=== PATIENT | female | born 1960 | race African-American/Black ===

== ENCOUNTER → 2018-01-11 | Outpatient (CLI) | payer OTHER ==
--- NOTE | 2018-01-11 15:19 | MM ---
Reason for exam: clinical finding. Last mammogram was performed 1 year and 9 months ago. History: Patient is postmenopausal. Family history of breast cancer in sister at age 51 and breast cancer in sister at age 40. Indicated problem(s): lump or thickening in the right breast. Physical Findings: Nurse did not find any significant physical abnormalities on exam. MG Diagnostic Mammo w CAD [facility]NO[facility] Bilateral CC, MLO, and XCCL view(s) were taken. Prior study comparison: April 19, 2016, bilateral MG screening mammo w CAD. July 20, 2015, mammogram, performed at [facility]. The breast tissue is heterogeneously dense. This may lower the sensitivity of mammography. Right superior rounded skin lesion on MLO view, noted in the area of skin lesion per nursing. No suspicious abnormality. Intra-mammary node on the right breast. These results were verbally communicated with the patient and result sheet given to the patient on 01/11/18. ASSESSMENT: Benign, BI-RAD 2 RECOMMENDATION: Routine screening mammogram of both breasts in 1 year.
--- NOTE | 2018-01-11 15:20 | USB ---
Reason for exam: clinical finding. History: Patient is postmenopausal. Family history of breast cancer in sister at age 51 and breast cancer in sister at age 40. Indicated problem(s): lump or thickening in the right breast. US Breast RT Right breast ultrasound includes all four quadrants, the retroareolar region and axilla. Finding demonstrates no cystic or solid lesion seen. No sonographic correlate for the palpable. These results were verbally communicated with the patient and result sheet given to the patient on 01/11/18. ASSESSMENT: Negative, BI-RAD 1 RECOMMENDATION: Routine screening mammogram of both breasts in 1 year. Manage patient on a clinical basis.
== END | disposition home or self-care (01) ==
LOC: RADMAMWWP 13:17
PROVIDERS: ATTEND Family Medicine Adolescent Medicine
DX: N63.10 Unspecified lump in the right breast, unspecified quadrant (principal)
CPT/HCPCS: 77066

== ENCOUNTER → 2018-08-29 | Outpatient (CLI) | payer OTHER ==
--- NOTE | 2018-08-29 07:51 | US ---
EXAMINATION TYPE: US venous doppler duplex LE LT DATE OF EXAM: 08/29/2018 7:21 AM COMPARISON: NONE CLINICAL HISTORY: M79.605 Pain in left leg. Calf tightness. Patient states left thigh is bigger than right. No hx of blood clots. No blood thinners. No surgeries. SIDE PERFORMED: Left TECHNIQUE: The lower extremity deep venous system is examined utilizing real time linear array sonog rober with graded compression, doppler sonography and color-flow sonography. VESSELS IMAGED: External Iliac Vein (EIV) Common Femoral Vein Deep Femoral Vein Greater Saphenous Vein * Femoral Vein Popliteal Vein Small Saphenous Vein * Proximal Calf Veins (* superficial vessels) Left Leg: Negative for DVT Grayscale, color doppler, spectral doppler imaging performed of the deep veins of the left lower extr emity. There is normal flow, compressibility, vascular waveforms. IMPRESSION: No ultrasound evidence for acute DVT in the left lower extremity.
== END | disposition home or self-care (01) ==
LOC: RADUSWWP 06:57
PROVIDERS: ATTEND Family Medicine
DX: M79.605 Pain in left leg (principal)

== ENCOUNTER 2019-05-10 23:43 | Emergency (ER) | payer OTHER ==
[2019-05-10 23:52] VITALS: BP 133/83; RESP 18
[2019-05-11 00:33] LABS: Basophils # (A) 0.1 k/uL (0-0.2); Basophils % (A) 1 %; Eosinophils # (A) 0.4 k/uL (0-0.7); Eosinophils % (A) 4 %; Lymphocytes # (A) 2.6 k/uL (1.0-4.8); Lymphocytes % (A) 25 %; MCH 27.6 pg (25.0-35.0); MCHC 31.7 g/dL (31.0-37.0); MCV 87.1 fL (80.0-100.0); Mean Platelet Volume 7.6; Monocytes # (A) 0.6 k/uL (0-1.0); Monocytes % (A) 6 %; Neutrophils # (A) 6.5 k/uL (1.3-7.7); Neutrophils % (A) 63 %; Platelet Count 277 k/uL (150-450); RBC 4.71 m/uL (3.80-5.40); RDW 15.5 % (11.5-15.5); WBC 10.4 k/uL (3.8-10.6)
[2019-05-11 00:44] LABS: ALT 32 U/L (9-52); AST 25 U/L (14-36); African American GFR (CKD) >90 (>60 ml/min/1.73 sqM); Alkaline Phosphatase 117 U/L (38-126); Anion Gap 5 mmol/L; Blood Urea Nitrogen 16 mg/dL (7-17); Calcium 9.5 mg/dL (8.4-10.2); Carbon Dioxide 33 mmol/L (22-30); Chloride 104 mmol/L (98-107); Glucose 112 mg/dL (74-99); Potassium 4.8 mmol/L (3.5-5.1); Sodium 142 mmol/L (137-145); Total Bilirubin 0.6 mg/dL (0.2-1.3); Total Protein 7.3 g/dL (6.3-8.2)
--- NOTE | 2019-05-11 00:54 | US ---
EXAM: US Duplex Right Lower Extremity Veins CLINICAL HISTORY: ITS.REASON US Reason: Pain TECHNIQUE: Real-time duplex ultrasound scan of the right lower extremity veins integrating B-mode two-dimensional vascular structure, Doppler spectral analysis, color flow Doppler imaging and compression. COMPARISON: None. FINDINGS: Deep veins: Unremarkable. No DVT in the visualized common femoral, femoral, proximal deep femoral or popliteal veins. The veins demonstrate normal color flow, are normally compressible, with normal phasic flow and/or augmentation response. Superficial veins: Unremarkable. No thrombus in the visualized great saphenous vein. Soft tissues: No acute findings. No popliteal cyst. IMPRESSION: No evidence of deep vein thrombosis in the right lower extremity.
--- NOTE | 2019-05-11 00:55 | XR ---
EXAM: XR Chest, 2 Views CLINICAL HISTORY: ITS.REASON XR Reason: Pain TECHNIQUE: Frontal and lateral views of the chest. COMPARISON: None. FINDINGS: Lungs: Hypoinflated lungs with bibasilar opacities which may represent atelectasis. Pleural space: Unremarkable. No pneumothorax. Heart: Cardiomegaly. Mediastinum: Unremarkable. Bones/joints: Degenerative changes seen in the thoracic spine. IMPRESSION: 1. Hypoinflated lungs with bibasilar opacities which may represent atelectasis. Infection is not excluded. 2. Cardiomegaly.
--- NOTE | 2019-05-11 01:22 | ED ---
General Adult HPI - General Chief complaint: Extremity Problem,Nontraumatic Stated complaint: Rt lower leg swelling Time Seen by Provider: 05/10/19 23:56 Source: patient, RN notes reviewed, old records reviewed Mode of arrival: ambulatory Limitations: no limitations - History of Present Illness Initial comments: 59-year-old female patient past history significant for morbid obesity, chronic lower extremity edema presents to do chief complaint of 2 weeks of right lower extremity pain. Patient ports that she has been wearing her compression stockings. Patient denies any chest pain shortness breath abdominal pain nausea vomiting diarrhea. Systemic: Pt denies fatigue, fever/chills, rash. Pt denies weakness, night sweats, weight loss. Neuro: Pt denies headache, visual disturbances, syncope or pre-syncope. HEENT: Pt denies ocular discharge or irritation, otalgia, rhinorrhea, pharyngitis or notable lymphadenopathy. Cardiopulmonary: Pt denies chest pain, SOB, heart palpitations, dyspnea on exertion. Abdominal/GI: Pt denies abdominal pain, n/v/d. : Pt denies dysuria, burning w/ urination, frequency/urgency. Denies new onset urinary or bowel incontinence. MSK: Pt denies loss of strength or function in extremities. Neuro: Pt denies new onset weakness, paresthesias. - Related Data Allergies Allergy/AdvReac Type Severity Reaction Status Date / Time Penicillins Allergy Rash/Hives Verified 05/10/19 23:52 Review of Systems ROS Statement: Those systems with pertinent positive or pertinent negative responses have been documented in the HPI. ROS Other: All systems not noted in ROS Statement are negative. Past Medical History Additional Past Medical History / Comment(s): Chronic edema History of Any Multi-Drug Resistant Organisms: None Reported Past Surgical History: No Surgical Hx Reported Past Psychological History: No Psychological Hx Reported Smoking Status: Former smoker Past Alcohol Use History: None Reported Past Drug Use History: None Reported General Exam - General Exam Comments Initial Comments: Constitutional: NAD, AOX3, Pt has pleasant affect. HEENT: NC/AT, trachea midline, neck supple, no lymphadenopathy. Posterior pharynx non erythematous, without exudates. External ears appear normal, without discharge. Mucous membranes moist. Eyes PERRLA, EOM intact. There is no scleral icterus. No pallor noted. Cardiopulmonary: RRR, no murmurs, rubs or gallops, no JVD noted. Lungs CTAB in anterior and posterior carmona. +2 peripheral edema bilaterally. Abdominal exam: Abdomen soft and non-distended. Abdomen non-tender to palpation in all 4 quadrants. Bowel sounds active in LLQ. No hepatosplenomegaly. No ecchymosis Neuro: CN II-XII grossly intact. No nuchal rigidity. No raccon eyes, no hanson sign, no hemotympanum. No cervical spinal tenderness. MSK: R posterior calf tenderness, homans sign negative bilaterally. Posterior tibialis and radial pulse +2 bilaterally. Sensation intact in upper and lower extremities. Full active ROM in upper and lower extremities, 5/5 stregnth. Limitations: no limitations Course Vital Signs 05/10/19 23:48 Temperature 98 F Pulse Rate 61 Respiratory 18 Rate Blood Pressure 133/83 O2 Sat by Pulse 98 Oximetry Medical Decision Making - Medical Decision Making 59-year-old female patient past history significant for morbid obesity, chronic lower extremity edema presents to do chief complaint of 2 weeks of right lower extremity pain. Patient ports that she has been wearing her compression stockings. Patient denies any chest pain shortness breath abdominal pain nausea vomiting diarrhea. Pt VSS, afebrile. Physical exam displayed: +2 peripheral edema bilaterally. Laboratory investigations noncompressive. Posterior tibialis, dorsalis pedis pulse +2 upper extremity bilaterally. Chest x-ray dis played hypoinflated lungs with bibasilar opacities likely atelectasis. Cardiomegaly. Ultrasound displayed no evidence of DVT. Patient family be secondary to edema. Patient will discharge, follow up with primary Right appeared advised to continue to wear compression stockings. Case discussed with Dr. Gaming. - Lab Data Result diagrams: 05/11/19 00:27 05/11/19 00:27 Lab Results 05/11/19 05/11/19 Range/Units 00:27 00:27 WBC 10.4 (3.8-10.6) k/uL RBC 4.71 (3.80-5.40) m/uL Hgb 13.0 (11.4-16.0) gm/dL Hct 41.0 (34.0-46.0) % MCV 87.1 (80.0-100.0) fL MCH 27.6 (25.0-35.0) pg MCHC 31.7 (31.0-37.0) g/dL RDW 15.5 (11.5-15.5) % Plt Count 277 (150-450) k/uL Neutrophils % 63 % Lymphocytes % 25 % Monocytes % 6 % Eosinophils % 4 % Basophils % 1 % Neutrophils # 6.5 (1.3-7.7) k/uL Lymphocytes # 2.6 (1.0-4.8) k/uL Monocytes # 0.6 (0-1.0) k/uL Eosinophils # 0.4 (0-0.7) k/uL Basophils # 0.1 (0-0.2) k/uL Sodium 142 (137-145) mmol/L Potassium 4.8 (3.5-5.1) mmol/L Chloride 104 (98-107) mmol/L Carbon Dioxide 33 H (22-30) mmol/L Anion Gap 5 mmol/L BUN 16 (7-17) mg/dL Creatinine 0.81 (0.52-1.04) mg/dL Est GFR (CKD-EPI)AfAm >90 (>60 ml/min/1.73 sqM) Est GFR (CKD-EPI)NonAf 80 (>60 ml/min/1.73 sqM) Glucose 112 H (74-99) mg/dL Calcium 9.5 (8.4-10.2) mg/dL Total Bilirubin 0.6 (0.2-1.3) mg/dL AST 25 (14-36) U/L ALT 32 (9-52) U/L Alkaline Phosphatase 117 (38-126) U/L Total Protein 7.3 (6.3-8.2) g/dL Albumin 4.0 (3.5-5.0) g/dL Disposition Clinical Impression: Myalgia Disposition: HOME SELF-CARE Condition: Stable Instructions (If sedation given, give patient instructions): Musculoskeletal Pain (ED) Additional Instructions: Patient to adhere to previously discussed treatment plan and will take medication(s) as directed. Patient to follow up with PCP in 1-2 days. Patient to return to ED if symptoms do not improve. Follow-up with primary care provider tomorrow, continue to wear compression stockings, return to your condition worsens. Is patient prescribed a controlled substance at d/c from ED?: No Referrals: Leah Marsh MD [Primary Care Provider] - 1-2 days
[2019-05-11 01:29] VITALS: PULSE 77; TEMP 97.7
== END 2019-05-11 01:29 | disposition home or self-care (01) ==
LOC: EC 23:43
DX: M79.18 Myalgia, other site (principal); R60.0 Localized edema; R91.8 Other nonspecific abnormal finding of lung field; I51.7 Cardiomegaly; Z87.891 Personal history of nicotine dependence; Z88.0 Allergy status to penicillin
CPT/HCPCS: 36415; 71046; 80053; 85025; 99284

== ENCOUNTER → 2020-05-19 | Outpatient (CLI) | payer OTHER ==
--- NOTE | 2020-05-21 09:22 | MM ---
Reason for exam: screening (asymptomatic). Last mammogram was performed 2 years and 4 months ago. History: Patient is postmenopausal. Family history of breast cancer in sister at age 51 and breast cancer in sister at age 40. Physical Findings: A clinical breast exam by your physician is recommended on an annual basis and results should be correlated with mammographic findings. MG Screening Mammo w CAD Bilateral CC and MLO view(s) were taken. Prior study comparison: January 11, 2018, bilateral MG diagnostic mammo w CAD [facility]. April 19, 2016, bilateral MG screening mammo w CAD. There are scattered fibroglandular densities. Focal asymmetry bilateral upper outer quadant are unchanged. No significant changes when compared with prior studies. ASSESSMENT: Benign, BI-RAD 2 RECOMMENDATION: Routine screening mammogram of both breasts in 1 year.
== END | disposition home or self-care (01) ==
LOC: RADMAMWWP 14:55
PROVIDERS: ATTEND Family Medicine
DX: Z12.31 Encounter for screening mammogram for malignant neoplasm of breast (principal)
CPT/HCPCS: 77067

== ENCOUNTER → 2020-06-26 | Outpatient (CLI) | payer OTHER ==
--- NOTE | 2020-06-26 14:02 | US ---
EXAMINATION TYPE: US venous doppler duplex LE DATE OF EXAM: 06/26/2020 1:35 PM COMPARISON: NONE CLINICAL HISTORY: M79.605; M79.89,R22.9. edema bilateral legs SIDE PERFORMED: bilateral TECHNIQUE: The lower extremity deep venous system is examined utilizing real time linear array sonog rober with graded compression, doppler sonography and color-flow sonography. VESSELS IMAGED: External Iliac Vein (EIV) Common Femoral Vein Deep Femoral Vein Greater Saphenous Vein * Femoral Vein Popliteal Vein Small Saphenous Vein * Proximal Calf Veins (* superficial vessels) limitations due to patient's body habitus Right Leg: no evidence of DVT Left Leg: no evidence of DVT. Complex anechoic area left popliteal fossa = 3.7 x 1.3 x 1.4cm, Simpson' s cyst IMPRESSION: 1. Bilateral lower extremity ultrasound negative for deep venous thrombosis. 2. Note is made of a popliteal cyst left posterior tibial fossa
--- NOTE | 2020-06-26 14:04 | US ---
EXAMINATION TYPE: US extremity nonvasc mass LT DATE OF EXAM: 06/26/2020 COMPARISON: NONE CLINICAL HISTORY: R22.9 lump of skin. edema upper/mid left munoz scanned within area of concern, left upper/mid munoz, no evidence of significant abnormality by ultras ound. soft tissue edema noted IMPRESSION: 1. Soft tissue swelling is present. No suspicious cystic or solid areas are identified.
== END | disposition home or self-care (01) ==
LOC: RADUSWWP 12:51
PROVIDERS: ATTEND Family Medicine
DX: M79.89 Other specified soft tissue disorders (principal); M85.68 Other cyst of bone, other site
CPT/HCPCS: 93970

== ENCOUNTER 2020-07-15 15:23 | Emergency (ER) | payer OTHER ==
[2020-07-15 15:44] VITALS: RESP 18
--- NOTE | 2020-07-15 16:21 | ED ---
General Adult HPI - General Chief complaint: Extremity Problem,Nontraumatic Stated complaint: leg swelling Time Seen by Provider: 07/15/20 15:51 Source: patient, RN notes reviewed Mode of arrival: wheelchair Limitations: no limitations - History of Present Illness Initial comments: Patient is a pleasant [age]-year-old female presenting to the emergency Department with complaints of left leg swelling. Onset of symptoms was last day or 2. Patient does have some discomfort and feels that is somewhat warm. Patient did have similar symptoms less than a year ago and ultrasound was negative. Unknown diagnosis at that time. Patient denies any chest pain or difficulty breathing. No fevers. - Related Data Previous Rx's Medication Instructions Recorded Cephalexin [Keflex] 500 mg PO QID #40 cap 07/15/20 Allergies Allergy/AdvReac Type Severity Reaction Status Date / Time Penicillins Allergy Rash/Hives Verified 07/15/20 15:44 Review of Systems ROS Statement: Those systems with pertinent positive or pertinent negative responses have been documented in the HPI. ROS Other: All systems not noted in ROS Statement are negative. Constitutional: Denies: fever Eyes: Denies: eye pain ENT: Denies: ear pain Respiratory: Denies: cough, dyspnea Cardiovascular: Denies: chest pain Endocrine: Denies: fatigue Gastrointestinal: Denies: abdominal pain Genitourinary: Denies: dysuria Musculoskeletal: Reports: as per HPI. Denies: back pain Skin: Denies: lesions Neurological: Denies: headache Past Medical History Past Medical History: Diabetes Mellitus, Hypertension Additional Past Medical History / Comment(s): Chronic edema History of Any Multi-Drug Resistant Organisms: None Reported Past Surgical History: Hysterectomy Past Psychological History: No Psychological Hx Reported Smoking Status: Former smoker Past Alcohol Use History: None Reported Past Drug Use History: None Reported General Exam Limitations: no limitations General appearance: alert, in no apparent distress Head exam: Present: normocephalic Eye exam: Present: normal appearance Neck exam: Present: normal inspection Respiratory exam: Present: normal lung sounds bilaterally Cardiovascular Exam: Present: regular rate, normal rhythm GI/Abdominal exam: Present: soft. Absent: tenderness Extremities exam: Present: calf tenderness (Mild to moderate Tenderness on the left), other (No obvious size difference on visualization. No warmth. There is a questionable trace amount of erythema left anterior calf) Neurological exam: Present: alert Psychiatric exam: Present: normal affect, normal mood Skin exam: Present: normal color Course Vital Signs 07/15/20 15:41 Temperature 98.1 F Pulse Rate 64 Respiratory 18 Rate Blood Pressure 132/81 O2 Sat by Pulse 100 Oximetry Medical Decision Making - Medical Decision Making Patient reevaluated and updated. Case is also discussed with Dr. Rupinder Singer and she is made aware of limitations. She will reevaluate patient and states patient did also have recent negative ultrasound just 2 weeks ago. She would like patient to have antibiotics for possible early cellulitis. - Radiology Data Radiology results: report reviewed (Ultrasound negative for DVT. There is slight limitations.) Disposition Clinical Impression: Cellulitis, leg Disposition: HOME SELF-CARE Condition: Stable Instructions (If sedation given, give patient instructions): Cellulitis (ED) Additional Instructions: Please follow-up with Dr. Higginbotham in the next couple days for recheck. Return for chest pain or difficulty in breathing, fever, increased pain or swelling or redness or warmth worsening symptoms or other concerns. Prescription has been sent to your pharmacy[facility] Prescriptions: Cephalexin [Keflex] 500 mg PO QID #40 cap Is patient prescribed a controlled substance at d/c from ED?: No Referrals: Leah Marsh MD [Primary Care Provider] - 1-2 days Time of Disposition: 17:04
--- NOTE | 2020-07-15 16:47 | US ---
EXAMINATION TYPE: US venous doppler duplex LE LT DATE OF EXAM: 07/15/2020 4:41 PM COMPARISON: Bilateral lower extremity venous ultrasound June 26, 2020 CLINICAL HISTORY: pain. SIDE PERFORMED: TECHNIQUE: The lower extremity deep venous system is examined utilizing real time linear array sonog rober with graded compression, doppler sonography and color-flow sonography. VESSELS IMAGED: External Iliac Vein (EIV) Common Femoral Vein Deep Femoral Vein Greater Saphenous Vein * Femoral Vein Popliteal Vein Small Saphenous Vein * (* superficial vessels) Morbidly obese patient, study somewhat limited. Left Leg: Negative for DVT, unable to see distal femoral vein for compression views, limited jaleel katlyn views of popliteal vein. Grayscale, color doppler, spectral doppler imaging performed of the deep veins of the left lower extr emity. IMPRESSION: Suboptimal study due to body habitus. No convincing evidence for acute DVT in the left lo wer extremity.
[2020-07-15 17:20] VITALS: BP 131/88; PULSE 61; TEMP 97.8
== END 2020-07-15 17:19 | disposition home or self-care (01) ==
LOC: EC 15:23
DX: L03.116 Cellulitis of left lower limb (principal); Z88.0 Allergy status to penicillin; Z87.891 Personal history of nicotine dependence
CPT/HCPCS: 99283

== ENCOUNTER → 2020-07-21 | Outpatient (CLI) | payer OTHER | END | disposition home or self-care (01) | LOC: LABWHC1 13:14 | PROVIDERS: ATTEND Family Medicine | DX: Z20.828 Contact with and (suspected) exposure to other viral communicable diseases (principal) | CPT/HCPCS: U0003; C9803 ==

== ENCOUNTER → 2020-11-14 | Outpatient (CLI) | payer OTHER | END | disposition home or self-care (01) | LOC: LABMAIN 08:06 | PROVIDERS: ATTEND Family Medicine | DX: Z53.9 Procedure and treatment not carried out, unspecified reason (principal) ==

== ENCOUNTER → 2021-01-01 | Outpatient (CLI) | payer OTHER ==
--- NOTE | 2021-01-01 11:54 | US ---
EXAMINATION TYPE: US pelvic limited DATE OF EXAM: 01/01/2021 COMPARISON: NONE CLINICAL HISTORY: 60-year-old female I10 essential hypertension, R32 urinary incontinence. Complete h ysterectomy 1988 TECHNIQUE: Transabdominal (TA) Date of LMP: unknown FINDINGS: EXAM MEASUREMENTS: Uterus: Surgically absent Endometrial Stripe: Surgically absent Right Ovary: Surgically absent Left Ovary: Surgically absent 1. Uterus: Surgically absent 2. Endometrium: Surgically absent 3. Right Ovary: Surgically absent 4. Left Ovary: Surgically absent 5. Bilateral Adnexa: appears wnl IMPRESSION: No evident adnexal abnormality. No pelvic free fluid. Status post hysterectomy and bilateral salpingo -oophorectomies.
--- NOTE | 2021-01-01 12:19 | US ---
EXAMINATION TYPE: US abdomen complete DATE OF EXAM: 01/01/2021 COMPARISON: NONE CLINICAL HISTORY: 60-year-old female I10 essential hypertension, R32 urinary incontinence. HTN, urina ry incontinence TECHNIQUE: Multiple sonographic images of the abdomen are obtained. FINDINGS: EXAM MEASUREMENTS: Liver Length: 18.4 cm Gallbladder Wall: 0.2 cm CBD: 0.5 cm Spleen: 9.7 cm Right Kidney: 10.8 x 4.6 x 4.3 cm Left Kidney: 12.6 x 6.2 x 5.6 cm [employer] notes: Technical limitations due to patient's body habitus, morbidly obese, and large a mount of overlying bowel Pancreas: Obscured by bowel gas Liver: limited evaluation, enlarged, echogenic, attenuating, unable to penetrate Gallbladder: no evidence of stones. No wall thickening or surrounding fluid. Evidence for sonographic Mike's sign: no CBD: appears wnl Spleen: limited evaluation Right Kidney: limited evaluation Left Kidney: mild to moderate hydronephrosis Upper IVC: Obscured by overlying bowel gas Abd Aorta: limited evaluation, distal/bifurcation obscured IMPRESSION: 1. Limited exam due to bowel gas and large patient body habitus. 2. Severe hepatic steatosis. 3. Mild to moderate left-sided hydronephrosis. Further appropriate workup recommended to determine et iology.
== END | disposition home or self-care (01) ==
LOC: RADUSWWP 06:56
PROVIDERS: ATTEND Family Medicine
DX: N13.30 Unspecified hydronephrosis (principal); K76.0 Fatty (change of) liver, not elsewhere classified; Z90.710 Acquired absence of both cervix and uterus
CPT/HCPCS: 76700; 76857

== ENCOUNTER → 2021-01-28 | Outpatient (CLI) | payer OTHER ==
[2021-01-28 13:10] LABS: African American GFR (CKD) >90 (>60 ml/min/1.73 sqM); Blood Urea Nitrogen 16 mg/dL (7-17); Non-African American GFR(CKD) >90 (>60 ml/min/1.73 sqM)
--- NOTE | 2021-01-28 14:52 | CT ---
EXAMINATION TYPE: CT abdomen pelvis wo/w con DATE OF EXAM: 01/28/2021 COMPARISON: None HISTORY: Flank pain and hydronephrosis. CT DLP: 6416.5 mGycm CONTRAST: CT scan of the abdomen and pelvis is performed with Oral Contrast and without and with IV Contrast, p atient injected with 100 mL of Isovue M300. FINDINGS: LUNG BASES-: No visible nodule. No infiltrate. LIVER/GB: No calcified gallstones. No space occupying hepatic lesion. Biliary tree is of normal ca liber. PANCREAS: No inflammation. No distinct mass. SPLEEN: No splenic enlargement. No lesion seen. ADRENALS: No nodule. No thickening. KIDNEYS/BLADDER: No hydronephrosis. No nephrolithiasis. No solid distinct renal mass. Large left-s ided renal parapelvic cyst measuring 4.7 x 4.2 cm structures and splays the renal collecting system. Urinary bladder grossly unremarkable. BOWEL: Normal appendix. Normal bowel caliber. No inflammation. GENITAL ORGANS: Hysterectomy changes identified. LYMPH NODES: No greater than 1cm abdominal or pelvic lymph nodes are appreciated. AORTA: No significant abnormality. OSSEOUS STRUCTURES: No significant abnormality is seen. OTHER: No significant additional abnormality is seen. IMPRESSION: 1. Large left-sided renal parapelvic cyst measuring 4.7 x 4.2 cm structures and splays the renal chaim ecting system. No evidence for hydronephrosis.
== END | disposition home or self-care (01) ==
LOC: RADCTMAIN 12:22
PROVIDERS: ATTEND Urology
DX: N28.1 Cyst of kidney, acquired (principal)
CPT/HCPCS: 82565; 84520; 74178; 36415; Q9967 ×2

== ENCOUNTER → 2021-02-18 | Outpatient (CLI) | payer OTHER ==
--- NOTE | 2021-02-18 16:46 | CT ---
EXAMINATION TYPE: CT abdomen pelvis wo con DATE OF EXAM: 02/18/2021 HISTORY: Right sided abdominal pain and urinary incontinence. CT DLP: 1493.7 mGycm. Automated Exposure Control for Dose Reduction was Utilized. TECHNIQUE: CT scan of the abdomen and pelvis is performed without oral or IV contrast. COMPARISON: Prior CT abdomen and pelvis January 28, 2021 FINDINGS: Within the limitations of a non-contrast study, the following observations are made. Exam suboptimal secondary to patient's large body habitus. LUNG BASES: Stable mild cardiomegaly. LIVER/GB: Diffuse fatty infiltration of liver redemonstrated. PANCREAS: No significant abnormality is seen. SPLEEN: No significant abnormality is seen. ADRENALS: No significant abnormality is seen. KIDNEYS: Prominent parapelvic cyst centrally in the left kidney redemonstrated. Cortical volume loss right kidney redemonstrated. BOWEL: Suboptimal evaluation of bowel without enteric contrast. Occasional diverticula in the left an d sigmoid colon. No convincing CT evidence for acute diverticulitis. No suspicious small or large bow el dilatation. Debris filled stomach suggests recent meal ingestion. GENITAL ORGANS: Uterus surgically absent occasional scattered bilateral pelvic phleboliths. LYMPH NODES: No greater than 1cm abdominal or pelvic lymph nodes are appreciated. OSSEOUS STRUCTURES: Facet arthropathy lower lumbar spine. OTHER: No significant additional abnormality is seen. IMPRESSION: No new or acute findings evident. No significant change from recent CT.
== END | disposition home or self-care (01) ==
LOC: RADCTMAIN 15:35
PROVIDERS: ATTEND Family Medicine
DX: R10.9 Unspecified abdominal pain (principal); R32 Unspecified urinary incontinence
CPT/HCPCS: 74176

== ENCOUNTER → 2022-02-09 | Outpatient (CLI) | payer OTHER ==
--- NOTE | 2022-02-10 10:41 | MM ---
Reason for Exam: Screening (asymptomatic). Last mammogram was performed 1 year(s) and 9 month(s) ago. Patient History: Menarche at age 13. First Full-Term at age 13. Left ovary removed at age 27. Right ovary removed at age 27. Hysterectomy at age 27. Postmenopausal. Sister had breast cancer, age 51. Sister had breast cancer, age 40. Risk Values: Pam 5 year model risk: 6.6%. NCI Lifetime model risk: 26.8%. Prior Study Comparison: 04/19/2016 Bilateral Screening Mammogram, [facility]. 01/11/2018 Bilateral Diagnostic Mammogram, [facility]. 05/19/2020 Bilateral Screening Mammogram, [facility]. Tissue Density: There are scattered fibroglandular densities. Findings: Analyzed By CAD. Benign-appearing bilateral axillary lymph nodes are redemonstrated. There is no suspicious group of microcalcifications or new suspicious mass in either breast. Overall Assessment: Benign, BI-RAD 2 Management: Screening Mammogram of both breasts in 1 year. A clinical breast exam by your physician is recommended on an annual basis and results should be correlated with mammographic findings. Electronically signed and approved by: Emile Berman M.D.
== END | disposition home or self-care (01) ==
LOC: RADMAMWWP 08:23
PROVIDERS: ATTEND Family Medicine
DX: Z12.31 Encounter for screening mammogram for malignant neoplasm of breast (principal); Z78.0 Asymptomatic menopausal state; Z80.3 Family history of malignant neoplasm of breast; Z90.721 Acquired absence of ovaries, unilateral
CPT/HCPCS: 77067

== ENCOUNTER → 2022-07-06 | Outpatient (CLI) | payer OTHER ==
--- NOTE | 2022-07-06 13:52 | XR ---
EXAMINATION TYPE: XR Hip Complete RT DATE OF EXAM: 07/06/2022 COMPARISON: None HISTORY: Pain TECHNIQUE: 2 view right hip FINDINGS: Femoral head articulates with the acetabulum. The joint space appears preserved. No acute f ractures are evident. Follow up exams can be performed 7-10 days from acute trauma for continued pain. IMPRESSION: 1. No acute osseous abnormality right hip
--- NOTE | 2022-07-06 13:55 | XR ---
EXAMINATION TYPE: XR femur RT DATE OF EXAM: 07/06/2022 COMPARISON: None HISTORY: Pain TECHNIQUE: 2 view right femur FINDINGS: No acute fractures or dislocations are evident. Femoral head articulates with the acetabulu m. There is narrowing of the medial compartment joint space. Medial and lateral femoral condylar spurrin g of tibial plateau spurring is present. No joint effusion is evident. Patellofemoral joint space francine rowing is present. IMPRESSION: 1. Moderate degenerative changes right knee. 2. No acute osseous abnormality.
--- NOTE | 2022-07-06 13:58 | XR ---
EXAMINATION TYPE: XR sacroiliac joint comp BILAT DATE OF EXAM: 07/06/2022 COMPARISON: None HISTORY: Hip pain TECHNIQUE: Two-view sacroiliac joints FINDINGS: Vacuum joint phenomena is present bilaterally. Mild sclerosis present. Findings compatible with mild to moderate degenerative changes. No fusion is evident. No acute fractures are evident. IMPRESSION: 1. 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
--- NOTE | 2022-07-06 14:02 | XR ---
EXAMINATION TYPE: XR lumbosacral spine min 4V DATE OF EXAM: 07/06/2022 COMPARISON: 10/28/2015 HISTORY: Low back pain and right hip pain TECHNIQUE: 5 view lumbar spine FINDINGS: There are 5 lumbar-type vertebral bodies. The pedicles of L1-L4. Technically L5 pedicles ar e not well visualized facet degenerative changes are present no spondylolytic defects are evident. Di sc heights are preserved. Vertebral body heights are preserved. Alignment is normal. Facet degenerati ve changes are within the lumbar spine greater in the lower lumbar spine. IMPRESSION: 1. No acute osseous abnormality lumbar spine. 2. MRI can be performed for additional evaluation for soft tissue would be of benefit.
== END | disposition home or self-care (01) ==
LOC: RADXRMAIN 10:00
PROVIDERS: ATTEND Family Medicine
DX: M25.551 Pain in right hip (principal); M54.50 Low back pain, unspecified; R20.2 Paresthesia of skin
CPT/HCPCS: 72110; 72202; 73502

== ENCOUNTER → 2023-02-10 | Outpatient (CLI) | payer OTHER ==
--- NOTE | 2023-02-13 10:18 | MM ---
Reason for Exam: Screening (asymptomatic). Last screening mammogram was performed 12 month(s) ago. Patient History: Menarche at age 13. First Full-Term at age 13. Left ovary removed at age 27. Right ovary removed at age 27. Hysterectomy at age 27. Postmenopausal. Sister had breast cancer, age 51. Sister had breast cancer, age 40. Risk Values: Pam 5 year model risk: 3.1%. NCI Lifetime model risk: 12.1%. Prior Study Comparison: 01/11/2018 Bilateral Diagnostic Mammogram, [facility]. 05/19/2020 Bilateral Screening Mammogram, [facility]. 02/09/2022 Bilateral MG screening mammo w CAD, [facility]. Tissue Density: There are scattered fibroglandular densities. Findings: Analyzed By CAD. There is no suspicious group of microcalcifications or new suspicious mass in either breast. Overall Assessment: Negative, BI-RAD 1 Management: Screening Mammogram of both breasts in 1 year. A clinical breast exam by your physician is recommended on an annual basis and results should be correlated with mammographic findings. Electronically signed and approved by: Wes Maya D.O.
== END | disposition home or self-care (01) ==
LOC: RADMAMWWP 14:59
PROVIDERS: ATTEND Family Medicine
DX: Z12.31 Encounter for screening mammogram for malignant neoplasm of breast (principal); Z80.3 Family history of malignant neoplasm of breast; Z78.0 Asymptomatic menopausal state
CPT/HCPCS: 77063; 77067

== ENCOUNTER → 2023-04-18 | Outpatient (CLI) | payer OTHER ==
--- NOTE | 2023-04-18 09:29 | XR ---
EXAMINATION TYPE: XR knee complete LT DATE OF EXAM: 04/18/2023 CLINICAL HISTORY: pain TECHNIQUE: Three views of the left knee are obtained. COMPARISON: None. FINDINGS: There is no acute fracture/dislocation. The tri-compartment joint spaces appear severely narrowed particularly the medial tibiofemoral joint space in the patellofemoral joint space. There is subchondral sclerosis as well as intracondylar spur formation and spur formation along the margins o f the femoral condyles and tibial plateaus. The overlying soft tissue appears unremarkable. IMPRESSION: There is no acute fracture or dislocation ICD 10 NO FRACTURE, INITIAL EVALUATION
== END | disposition home or self-care (01) ==
LOC: RADXRMAIN 07:34
PROVIDERS: ATTEND Internal Medicine
DX: M25.562 Pain in left knee (principal)

== ENCOUNTER → 2023-11-07 | Outpatient (CLI) | payer OTHER ==
--- NOTE | 2023-11-07 12:20 | US ---
EXAMINATION TYPE: US venous doppler duplex LE LT DATE OF EXAM: 11/07/2023 11:17 AM COMPARISON: US 2019 CLINICAL INDICATION: Female, 63 years old with history of M79.89 OTHER SPECIFIED SOFT TISSUE DISORDER S; No hx of DVT. Patient does not take blood thinners. Swelling. SIDE PERFORMED: Left TECHNIQUE: The lower extremity deep venous system is examined utilizing real time linear array sonog rober with graded compression, doppler sonography and color-flow sonography. VESSELS IMAGED: Common Femoral Vein Deep Femoral Vein Greater Saphenous Vein * Femoral Vein Popliteal Vein Small Saphenous Vein * Proximal Calf Veins (* superficial vessels) Left Leg: No evidence of DVT. Anechoic fluid collection seen left medial knee: 3.8 x 4.5 x 1.3 cm. IMPRESSION: 1. No evidence for DVT within the left lower extremity imaged from the groin to the upper calf. 2. Small to moderate-sized 4.5 x 3.8 x 1.3 cm fluid collection medial aspect of the knee, suspected B radha's cyst. Consider MRI correlation given medial positioning.
== END | disposition home or self-care (01) ==
LOC: RADUSWWP 10:39
PROVIDERS: ATTEND Family Medicine
DX: M79.89 Other specified soft tissue disorders (principal)

== ENCOUNTER → 2024-06-19 | Outpatient (CLI) | payer MEDICARE ==
--- NOTE | 2024-06-20 20:12 | MM ---
Reason for Exam: Screening (asymptomatic). Last mammogram was performed 1 year(s) and 4 month(s) ago. Patient History: Menarche at age 13. First Full-Term at age 13. Left ovary removed at age 27. Right ovary removed at age 27. Hysterectomy at age 27. Postmenopausal. Sister had breast cancer, age 51. Sister had breast cancer, age 40. Risk Values: Pam 5 year model risk: 3.3%. NCI Lifetime model risk: 11.4%. Prior Study Comparison: 05/19/2020 Bilateral Screening Mammogram, [facility]. 02/09/2022 Bilateral MG screening mammo w CAD, [facility]. 02/10/2023 Bilateral MG 3D screening mammo w/cad, [facility]. Tissue Density: There are scattered areas of fibroglandular density. Findings: Analyzed By CAD. Unchanged areas of asymmetric density. There is no suspicious group of microcalcifications or new suspicious mass in either breast. Overall Assessment: Benign, BI-RAD 2 Management: Screening Mammogram of both breasts in 1 year. See note below in regards to the patient's increased 5 year Pam score . Patient should continue monthly self-breast exams. A clinical breast exam by your physician is recommended on an annual basis. This exam should not preclude additional follow-up of suspicious palpable abnormalities. Note on Pam scores and lifetime risk: 1. A Pam score greater than 3% is considered moderate risk. If this is the case, consider specialist referral to assess eligibility for a risk reducing agent. 2. If overall lifetime risk for the development of breast cancer is 20% or higher, the patient may qualify for future screening with alternating mammogram and breast MRI. [facility], , 06/20/2024 8:09 PM. Electronically signed and approved by: Francesca Andujar M.D. Radiologist
== END | disposition home or self-care (01) ==
LOC: RADMAMWWP 12:40
PROVIDERS: ATTEND Family Medicine
DX: R60.0 Localized edema
CPT/HCPCS: 77063; 77067

== ENCOUNTER → 2025-03-05 | Outpatient (CLI) | payer MEDICARE ==
--- NOTE | 2025-03-05 13:45 | MM ---
Reason for Exam: Clinical finding. Last screening mammogram was performed 8 month(s) ago. Patient History: Menarche at age 13. First Full-Term at age 13. Left ovary removed at age 27. Right ovary removed at age 27. Hysterectomy at age 27. Postmenopausal. Sister had breast cancer, age 51. Sister had breast cancer, age 40. Risk Values: Pam 5 year model risk: 3.3%. NCI Lifetime model risk: 11.4%. Prior Study Comparison: 02/09/2022 Bilateral MG screening mammo w CAD, [facility]. 02/10/2023 Bilateral MG 3D screening mammo w/cad, [facility]. 06/19/2024 Bilateral MG 3D screening mammo w/cad, [facility]. Tissue Density: Left: There are scattered areas of fibroglandular density. Findings: Analyzed By CAD. No finding to correlate with palpable abnormality. Overall Assessment: Incomplete: need additional imaging evaluation, BI-RAD 0 Management: Diagnostic Breast Ultrasound of the left breast. Results were given to the patient verbally at the time of exam. Patient should continue monthly self-breast exams. A clinical breast exam by your physician is recommended on an annual basis. This exam should not preclude additional follow-up of suspicious palpable abnormalities. Note on Pam scores and lifetime risk: 1. A Pam score greater than 3% is considered moderate risk. If this is the case, consider specialist referral to assess eligibility for a risk reducing agent. 2. If overall lifetime risk for the development of breast cancer is 20% or higher, the patient may qualify for future screening with alternating mammogram and breast MRI. [facility], , 03/05/2025 1:42 PM. Electronically signed and approved by: Karl Butler DO
--- NOTE | 2025-03-05 14:30 | USB ---
Reason for Exam: Clinical finding. Patient History: Menarche at age 13. First Full-Term at age 13. Left ovary removed at age 27. Right ovary removed at age 27. Hysterectomy at age 27. Postmenopausal. Sister had breast cancer, age 51. Sister had breast cancer, age 40. Risk Values: Pam 5 year model risk: 3.3%. NCI Lifetime model risk: 11.4%. Prior Study Comparison: 01/11/2018 Right Diagnostic Ultrasound, [facility]. 02/09/2022 Bilateral MG screening mammo w CAD, [facility]. 02/10/2023 Bilateral MG 3D screening mammo w/cad, [facility]. 06/19/2024 Bilateral MG 3D screening mammo w/cad, [facility]. Findings: The lower inner quadrant of the left breast, the axilla of the left breast and the retroareolar of the left breast were scanned. Technique utilized:US breast limited LT Image; Ultrasound imaging of: Area of concern, retroareolar region and axilla. No evidence for organizing fluid collection or mass. No finding to correlate with palpable abnormality. Negative left axilla. Overall Assessment: Negative, BI-RAD 1 Management: Screening Mammogram of both breasts in 1 year. A clinical breast exam by your physician is recommended on an annual basis and results should be correlated with mammographic findings. This exam should not preclude additional follow-up of suspicious palpable abnormalities. Results were given to the patient verbally at the time of exam. [facility], , 03/05/2025 2:28 PM. Electronically signed and approved by: Karl Butler DO
== END | disposition home or self-care (01) ==
LOC: RADMAMWWP 13:19
PROVIDERS: ATTEND Family Medicine
DX: N63.24 Unspecified lump in the left breast, lower inner quadrant (principal); R92.322 Mammographic fibroglandular density, left breast; Z78.0 Asymptomatic menopausal state; Z80.3 Family history of malignant neoplasm of breast
CPT/HCPCS: 77065; 76642; G0279; 77061